=== PATIENT | male | born 1975 | race Caucasian/White ===

== ENCOUNTER 2020-10-27 09:26 | Emergency (ER) | payer MEDICARE, MEDICAID, SELFPAY ==
[2020-10-27 09:35] VITALS: BP 158/78; PULSE 80; RESP 17; TEMP 36.8; O2SAT 93; BMI 50.4
--- NOTE | 2020-10-27 10:02 | ED_ITS ---
HPI - URI/Sore Throat <Josefa Zhou PA-C - Last Filed: 10/27/20 11:18> General Chief Complaint: Upper Respiratory Symptoms Stated Complaint: cough/nose congestion 1 month Time Seen by Provider: 10/27/20 10:00 Source: patient Mode of arrival: Ambulatory Limitations: no limitations History of Present Illness HPI Narrative: This is a well-appearing obese 45-year-old gentleman current alexander day smoker who presents complaining of cough that seems worse at night and in the morning and ongoing sinus congestion for the past 30 days. He notes he has been tested twice for COVID at 2 different locations the last being last week 5 days ago. He has tried multiple different cough medicines without relief from his symptoms. He denies shortness of breath, chest pain, fevers, chills, nausea , vomiting, diarrhea, abdominal pain, swelling in his feet or ankles and otherwise has been in his normal state of health. MD Complaint: cough, rhinorrhea and nasal congestion Onset (ago): month(s) (1) Duration: constant and other (worse laying flat and in the morning) Relieving factors: nothing Exacerbating factors: nothing Description of mucous: clear Able to tolerate fluids by mouth: Yes Associated symptoms: cough (produces small amunt of clear mucus) Treatments prior to arrival: cold medicine Related Data Previous Rx's Medication Instructions Recorded benzonatate 100 mg PO BID PRN #30 cap 10/27/20 fluticasone propionate 1 spray INTRANASAL BID #15.8 ml 10/27/20 Review of Systems <Josefa Zhou PA-C - Last Filed: 10/27/20 11:18> Review of Systems Narrative: GENERAL: Denies chills, fatigue, malaise, fever, sweats. HEENT: Positive for postnasal drip, sinus congestion, Denies sinus pain, ear pain, sore throat, difficulty swallowing, dizziness. RESPIRATORY: Denies dyspnea, positive for mild cough, negative for wheezing, hemoptysis, sputum. CARDIOVASCULAR: Denies chest pain, palpitations, orthopnea, edema, GASTROINTESTINAL: Denies nausea, vomiting, abdominal pain, diarrhea, constipation, melena. : Denies dysuria, frequency, incontinence, hematuria, urinary retention. MUSCULOSKELETAL: denies weakness, joint pain, or bony pain SKIN: Denies rash, skin lesions, or other NEUROLOGIC: Denies weakness, headache, numbness, change in speech, confusion, seizures, incoordination. PSYCHIATRIC: No concerning psychosocial issues. 12 point review of systems is negative except for those stated above Patient History <Josefa Zhou PA-C - Last Filed: 10/27/20 11:18> Social History Smoking Status: Current every day smoker Smoking Status: Current every day smoker Substance Use Type: does not use Exam <Josefa Zhou PA-C - Last Filed: 10/27/20 11:18> Narrative Exam Narrative: GENERAL: 45 year old obese patient appears stated age. Well- nourished, well-developed patient, in no apparent distress. HEAD: Atraumatic. Normocephalic. EYES: Pupils equal round and reactive. Extraocular motions intact. No scleral icterus. No injection or drainage. ENT: Nose without bleeding, purulent drainage. Throat with mild erythema of the tonsillar pillar, no tonsillar hypertrophy or exudate. Airway patent. No sinus tenderness noted. There is slight retraction of the left tympanic membrane, right tympanic membrane is pearly arora with cone of light visible. Bilateral ear canals are normal in appearance, there is no tenderness with palpation of the Ear. NECK: Trachea midline. Non tender CARDIOVASCULAR: Regular rate and rhythm without murmurs, gallops, or rubs. RESPIRATORY: Slight wheezing in the upper bur[place] consistent with smoker's lung, otherwise Clear to auscultation. Breath sounds equal bilaterally. No wheezes, rales, or rhonchi. GASTROINTESTINAL: Abdomen soft, protruberant, non-tender, nondistended. EXTREMITIES: No edema or joint tenderness. BACK: Nontender without deformity or crepitance. No flank tenderness. NEURO: AOx3. SKIN: No rash or erythema of visible areas Initial Vital Signs Initial Vital Signs: Vital Signs Temperature 98.3 F 10/27/20 09:35 Pulse Rate 80 10/27/20 09:35 Respiratory Rate 17 10/27/20 09:35 Blood Pressure 158/78 H 10/27/20 09:35 Pulse Oximetry 93 10/27/20 09:35 <Gwendolyn Samuel DO - Last Filed: 10/29/20 09:23> Initial Vital Signs Initial Vital Signs: Vital Signs Temperature 98.3 F 10/27/20 09:35 Pulse Rate 80 10/27/20 09:35 Respiratory Rate 17 10/27/20 09:35 Blood Pressure 158/78 H 10/27/20 09:35 Pulse Oximetry 93 10/27/20 09:35 Scores <Josefa Zhou PA-C - Last Filed: 10/27/20 11:18> GCS Rj coma scale eye opening: Spontaneous [place] coma scale verbal response: Orientated [place] coma scale motor response: Obey commands [place] coma scale total score: 15 Course <Josefa Zhou PA-C - Last Filed: 10/27/20 11:18> Vital Signs Vital signs: Vital Signs - 8 hr 10/27/20 09:35 Temperature 98.3 F Pulse Rate 80 Respiratory Rate 17 Blood Pressure 158/78 H Pulse Oximetry 93 <Gwendolyn Samuel DO - Last Filed: 10/29/20 09:23> Vital Signs Vital signs: Vital Signs - 8 hr 10/27/20 09:35 Temperature 98.3 F Pulse Rate 80 Respiratory Rate 17 Blood Pressure 158/78 H Pulse Oximetry 93 MDM - URI/Sore Throat <Josefa Zhou PA-C - Last Filed: 10/27/20 11:18> Differential Diagnosis Differential diagnosis: Likely viral infection and other (post nasal drip, seasonal allergies, smokers cough) Medical Records Attestation: I reviewed the patient's medical records. [facility] Narrative Medical decision making narrative: This is a well-appearing 45-year-old obese gentleman who presents complaining of 30 days of mild cough and sinus congestion. No systemic symptoms, unremarkable vitals, patient has had 2-COVID tests in the last few weeks including 1 in the last 5 days. Symptoms are worse at night if he is laying flat and in the morning when he wakes up. No symptoms or exam findings suggestive of CHF, asthma, GERD, there is slight wheezing in the upper burrell but patient is an everyday smoker and he denies any shortness of breath wheezing. X-rays are not obtained. There is slight erythema of the tonsillar pillar and slight retraction the left tympanic membrane. Patient is encouraged to try fluticasone, Tessalon, daily antihistamine follow-up with primary care provider and if he does not get improvement of his symptoms consider seeing ENT. Patient is in understanding and agreement. Emergency ret urn precautions provided. Discharge Plan Departure Patient Disposition: Home Clinical Impression: Post-nasal drip, Sinus congestion, Cough Activity Restrictions/Additional Instructions: Thank you for letting us be part of a care in the emergency department today. I'm sorry you have an have any symptoms now for almost a month, I think it is likely that you are possibly dealing with an allergy which is causing your symptoms it is also possible that you are fighting a viral illness that is just taking a little while for your body to completely get better. As we discussed I recommend that you try using Tessalon for your cough, I am also advising trying Flonase or fluticasone for your sinus congestion. In addition to that I think you should consider taking a daily antihistamine such as Claritin or Zyrtec to see if this improves her symptoms as at this point I think it is more likely you are dealing with allergies than anything else. Recommend that you do not take the nasal spray for more than about 5 days in a row as this can cause some rebound sinus swelling. It is okay to use it again but give yourself a break from it. As we discussed please follow-up with primary care work on getting reestablished as you have planned, and if you do feel like your symptoms are continuing and not relieved by these different medications you should probably talk to her primary care provider again about it and consider seeing [place] [facility] [place] specialist. There is no evidence of an emergent or life threatening illness at this time, but follow up with your doctor in 1-2 days is recommended nonetheless to continue to rule out serious underlying causes of your symptoms. Please call the office for an appointment. Please return to the Emergency Department for any worsening or persistent symptoms. Please take medications as directed. I have also referred you to [facility] which may help you in establishing a new primary care provider if you give them a call. Prescriptions: New fluticasone propionate 50 mcg/actuation spray,suspension 1 spray intranasal BID Qty: 15.8 RF: 0 benzonatate 100 mg capsule 100 mg PO BID PRN (Reason: cough) Qty: 30 RF: 0 Referrals: [facility] [Outside] Juliette Rios ARNP [Primary Care Provider] - <Gwendolyn Samuel DO - Last Filed: 10/29/20 09:23> Cosign ED Attending Cosignature Attestation: I was immediately available in the department for consultation. Documentation has been reviewed.
[2020-10-27 11:52] VITALS: BP 163/81; PULSE 72; RESP 22; O2SAT 92
== END 2020-10-27 11:58 | disposition home or self-care (01) ==
PROVIDERS: Emergency Provider Student in an Organized Health Care Education/Training Program; Family Provider Nurse Practitioner Gerontology; PCP Nurse Practitioner Gerontology
DX: R09.82 Postnasal drip (principal); R09.81 Nasal congestion; R05 Cough; E66.9 Obesity, unspecified; Z68.43 Body mass index [BMI] 50.0-59.9, adult
CPT/HCPCS: 99281

== ENCOUNTER → 2020-11-12 10:38 | Outpatient (CLI) | payer MEDICARE, MEDICAID, SELFPAY ==
--- NOTE | 2020-11-12 10:40 | DI.RAD.S_ITS ---
PROCEDURE: XR CHEST 2V INDICATIONS: cough TECHNIQUE: 2 views of the chest were acquired. COMPARISON: None. FINDINGS: Surgical changes and devices: Cardiac pacemaking device and single lead appear normal. Prior sternotomy. Lungs and pleura: Lungs are mildly abnormal with an interstitial prominence, perhaps reflecting prior smoking history. No pleural effusions or pneumothorax. Mediastinum: Mediastinal contours are normal. Heart size is normal. Bones and chest wall: No suspicious bony abnormalities. Soft tissues appear unremarkable. IMPRESSION: Interstitial prominence, within the mid and lower lung parenchyma, but a definite pneumonia is not found. Cardiac pacemaking device and single chamber lead appear normal. Prior sternotomy. Dictated by: Corbin Gomez M.D. on 11/12/2020 at 11:08 Approved by: Corbin Gomez M.D. on 11/12/2020 at 11:21
== END ==
PROVIDERS: Family Provider Nurse Practitioner Gerontology; PCP Family Medicine; Referring Provider Family Medicine; Visit Provider Family Medicine
DX: R05 Cough (principal); F17.200 Nicotine dependence, unspecified, uncomplicated; Z95.0 Presence of cardiac pacemaker
CPT/HCPCS: 71046

== ENCOUNTER → 2020-12-09 09:46 | Outpatient (CLI) | payer MEDICARE, MEDICAID, SELFPAY ==
[2020-12-09 10:48] LABS: Add Manual Diff / Slide Review NO; Basophils Absolute Auto 100 /uL (0-100); Eosinophils Absolute Auto 300 /uL (0-450); Eosinophils Percent Auto 4.6 % (2-4); Hematocrit 46.8 % (41-53); Hemoglobin 15.8 g/dL (13.5-17.5); Lymphocytes Absolute Auto 1500 /uL (1100-4500); Mean Corpuscular HGB Conc 33.7 % (30-36); Mean Corpuscular Hemoglobin 29.7 PG (26-34); Mean Corpuscular Volume 87.9 fL (80-100); Monocytes Absolute Auto 500 /uL (0-900); Neutrophils Absolute Auto 3500 /uL (1500-7000); Neutrophils Percent Auto 60.4 % (50-75); Platelet Count 168 X10^3/uL (150-400); Red Blood Cell Count 5.33 X10^6/uL (4.5-5.9); Red Cell Distribution Width 13.4 % (11.6-14.8); White Blood Cell Count 5.9 X10^3/uL (4.5-11.0)
[2020-12-09 11:10] LABS: Alanine Aminotransferase 27 IU/L (<50); Albumin 3.9 g/dL (3.5-5.0); Albumin Globulin Ratio 1.1 (1.0-2.8); Alkaline Phosphatase 139 U/L (38-126); Aspartate Aminotransferase 29 IU/L (17-59); BUN Creatinine Ratio 16.4 (6-22); Bilirubin Total 1.2 mg/dL (0.2-1.3); Blood Urea Nitrogen 12 mg/dL (9-20); Calcium 8.6 mg/dL (8.4-10.2); Carbon Dioxide 29 mmol/L (22-32); Chloride 104 mmol/L (98-107); Cholesterol 143 mg/dL (140-199); Estimated Glomerular Filt Rate > 60.0 mL/min (>60); Globulin 3.4 g/dL (1.7-4.1); Glucose 96 mg/dL (70-100); HDL Cholesterol 44 mg/dL (40-60); HEMOLYSIS < 15 (0-50); LDL Cholesterol Calculated 74 mg/dL (<100); Potassium 3.4 mmol/L (3.4-5.1); Sodium 138 mmol/L (137-145); Total Protein 7.3 g/dL (6.3-8.2); Triglycerides 124 mg/dL (35-150)
[2020-12-09 11:44] LABS: TSH w/ Reflex to FT4 3.07 uIU/mL (0.47-4.68)
== END ==
PROVIDERS: Family Provider Nurse Practitioner Gerontology; PCP Family Medicine; Referring Provider Family Medicine; Visit Provider Family Medicine
DX: Z13.220 Encounter for screening for lipoid disorders (principal); I10 Essential (primary) hypertension; Z13.29 Encounter for screening for other suspected endocrine disorder; Z13.228 Encounter for screening for other metabolic disorders; Z76.89 Persons encountering health services in other specified circumstances; Z83.3 Family history of diabetes mellitus
CPT/HCPCS: 36415; 80053; 80061; 83036; 84443; 85025

== ENCOUNTER 2021-12-15 13:41 | Emergency (ER) | payer MEDICARE, MEDICAID, SELFPAY ==
[2021-12-15 14:01] VITALS: BP 199/99; PULSE 84; RESP 16; TEMP 36.1; O2SAT 96; BMI 56.7
--- NOTE | 2021-12-15 18:07 | ED.DENTAL ---
HPI - Dental/Oral <Rogelio Baird PA-C - Last Filed: 12/15/21 18:39> General Chief complaint: Dental/Oral Stated complaint: TOOTH PAIN ABSCESS IN THE JAW Time Seen by Provider: 12/15/21 17:53 Source: patient Mode of arrival: Ambulatory History of Present Illness HPI Narrative: 46-year-old male present to the ED complaining of right lower jaw pain swelling that started yesterday. His history of previous dental infections and is not currently seen a dentist because of no dental insurance. No recent trauma and no other complaint reported. Related Data Home Medications Medication Instructions Recorded Confirmed aspirin 325 mg tablet 325 mg PO DAILY 11/12/20 11/12/20 Previous Rx's Medication Instructions Recorded benzonatate 100 mg capsule 100 mg PO BID PRN #30 cap 10/27/20 fluticasone propionate 50 1 spray INTRANASAL BID #15.8 ml 10/27/20 mcg/actuation nasal spray,suspension lisinopril 10 mg tablet 10 mg PO DAILY #90 tab 10/14/21 amoxicillin 875 mg-potassium 1 tab PO BID #14 tab 12/15/21 clavulanate 125 mg tablet (Augmentin) Allergies Allergy/AdvReac Type Severity Reaction Status Date / Time bubba Allergy Severe Tongue Verified 12/15/21 14:01 Swelling Review of Systems <Rogelio Baird PA-C - Last Filed: 12/15/21 18:39> Review of Systems ROS Unobtainable: All systems reviewed & are unremarkable except as noted in HPI and below Constitutional Constitutional: Denies chills, Denies fatigue, Denies fever(s), Denies frequent falls, Denies lethargy and Denies weakness Eyes Eyes: Denies change in vision, Denies eye discharge, Denies irritation and Denies loss of vision ENT Ears, Nose, Mouth, and Throat: Denies change in voice, Reports dental pain, Denies dizziness, Denies neck pain, Denies sore throat and Denies throat swelling Cardiovascular Cardiovascular: Denies chest pain, Denies irregular heart rhythm, Denies lightheadedness, Denies palpitations, Denies dyspnea, Denies dyspnea on exertion and Denies orthopnea Respiratory Respiratory: Denies cough, Denies dyspnea, Denies dyspnea on exertion and Denies wheezing Gastrointestinal Gastrointestinal: Denies abdominal pain, Denies change in bowel habits, Denies diarrhea, Denies nausea and Denies vomiting Genitourinary Genitourinary: Denies hematuria, Denies flank pain, Denies urinary incontinence and Denies urinary urgency Musculoskeletal Musculoskeletal: Denies back pain, Denies muscle weakness, Denies neck pain, Denies numbness and Denies tingling Integumentary/Breasts Skin/Breast: Denies pruritus, Denies erythema, Denies rash and Denies wounds Neurologic Neurologic: Denies behavioral changes, Denies confusion, Denies dizziness, Denies frequent falls, Denies loss of vision, Denies numbness, Denies tingling and Denies weakness Psychiatric Psychiatric: Denies anxiety, Denies behavioral changes, Denies confusion, Denies depression, Denies homicidal ideation and Denies suicidal ideation Endocrine Endocrine: Denies fatigue, Denies flushing and Denies palpitations Hematologic/Lymphatic Hematologic/Lymphatic: Denies easy bruising Allergic/Immunologic Allergic/Immunologic: Denies urticaria, Denies throat swelling and Denies wheezing Patient History <Rogelio Baird PA-C - Last Filed: 12/15/21 18:39> Medical History DVT (deep venous thrombosis) (~2004) Pacemaker (~2004) Pulmonary embolism (~2004) Surgical History H/O gastric bypass (~2018) History of cholecystectomy (~2009) History of open heart surgery (~2009) Status post gastric banding (~2005) Family History Father Diabetes mellitus Hypertension Hyperlipidemia Mother Diabetes mellitus Hypertension Brother Diabetes mellitus Grandmother Cancer Hypertension Social History Smoking Status: Current every day smoker Tobacco: How many years used: 5 quit status: considering quitting alcohol intake: current (3-4 drinks per month ) substance use type: does not use Smoking Status: Current every day smoker alcohol intake frequency: holidays/special occasions only Substance Use Type: does not use Exam <Rogelio Baird PA-C - Last Filed: 12/15/21 18:39> Initial Vital Signs Initial Vital Signs: Vital Signs Temperature 96.9 F L 12/15/21 14:01 Pulse Rate 84 12/15/21 14:01 Respiratory Rate 16 12/15/21 14:01 Blood Pressure 199/99 H 12/15/21 14:01 Pulse Oximetry 96 12/15/21 14:01 HENMT Head: normal to inspection, normocephalic and atraumatic Ears: external ears normal Nose: external nose normal Face and sinus: normal facial exam Teeth and gingiva: abnormal tooth or associated gingiva, caries and poor dentition Neck Neck: lymphadenopathy and submandibular swelling <Gwendolyn Samuel DO - Last Filed: 12/23/21 06:45> Initial Vital Signs Initial Vital Signs: Vital Signs Temperature 96.9 F L 12/15/21 14:01 Pulse Rate 84 12/15/21 14:01 Respiratory Rate 16 12/15/21 14:01 Blood Pressure 199/99 H 12/15/21 14:01 Pulse Oximetry 96 12/15/21 14:01 Procedures <Rogelio Baird PA-C - Last Filed: 12/15/21 18:39> Nerve Block Nerve Block 1: Time of procedure: 18:30 Time out performed: No Local Anesthetic: lidocaine 1% Amount of anesthesia used (mL): 3 Side: left Intraoral Nerve Block: inferior alveolar Procedure Successful: Yes Patient Tolerated Procedure: Well and No complications Complications: none Course <NADEEN Mai Last Filed: 12/15/21 18:39> Orders Ordered: Discontinued Medications Amoxicillin/Clavulanate Potassium (Amoxicillin/Clav 875/125 Mg) 1 tab PO NOW ONE Stop: 12/15/21 18:05 Last Admin: 12/15/21 18:34 Dose: 1 tab Documented by: ASH Lidocaine HCl (Lidocaine 1% 20 Ml) 20 ml INJ INTRA-OP ONE Stop: 12/15/21 18:05 Last Admin: 12/15/21 18:35 Dose: Not Given Documented by: ASH Vital Signs Vital signs: Vital Signs - 8 hr 12/15/21 14:01 Temperature 96.9 F L Pulse Rate 84 Respiratory Rate 16 Blood Pressure 199/99 H Pulse Oximetry 96 <DO Salnea Broussard Last Filed: 12/23/21 06:45> Orders Ordered: Discontinued Medications Amoxicillin/Clavulanate Potassium (Amoxicillin/Clav 875/125 Mg) 1 tab PO NOW ONE Stop: 12/15/21 18:05 Last Admin: 12/15/21 18:34 Dose: 1 tab Documented by: ASH Lidocaine HCl (Lidocaine 1% 20 Ml) 20 ml INJ INTRA-OP ONE Stop: 12/15/21 18:05 Last Admin: 12/15/21 18:35 Dose: Not Given Documented by: ASH Vital Signs Vital signs: Vital Signs - 8 hr 12/15/21 14:01 Temperature 96.9 F L Pulse Rate 84 Respiratory Rate 16 Blood Pressure 199/99 H Pulse Oximetry 96 MDM - Dental/Oral <Rogelio Baird PA-C - Last Filed: 12/15/21 18:39> Differential Diagnosis Differential diagnosis: Likely dental caries and dental abscess MDM Narrative Medical decision making narrative: Patient was evaluated for right lower jaw dental pain. Patient has evidence of dental caries with likely underlying abscess is visible to start patient on oral antibiotics recommend follow-up with a dentist dental block was performed without any concerns patient tolerated well anesthesia was achieved. Patient was discharged home Discharge Plan Departure Patient Disposition: Home Clinical Impression: Dental caries, Gingival abscess Instructions: Tooth Abscess, DI for Dental Pain Activity Restrictions/Additional Instructions: You were seen today for your dental pain. It is likely that you have an underlying infection and I sent an antibiotic over to the pharmacy that you had requested. He had a dental block done today for pain that should last few hours I would recommend that you follow-up with a dentist as you will need continued care. Prescriptions: New amoxicillin-pot clavulanate [Augmentin] 875-125 mg tablet 1 tab PO BID Qty: 14 0RF No Action lisinopril 10 mg tablet 10 mg PO DAILY Qty: 90 0RF Rx Instructions: APPOINTMENT DUE FOR FURTHER REFILLS. THANK YOU! 10/14/21 aspirin 325 mg tablet 325 mg PO DAILY 0RF fluticasone propionate 50 mcg/actuation spray,suspension 1 spray intranasal BID Qty: 15.8 0RF Rx Instructions: administer into each nostril benzonatate 100 mg capsule 100 mg PO BID PRN (Reason: cough) Qty: 30 0RF Referrals: Bradley Fernández DO [Primary Care Provider] - <Gwendolyn Samuel DO - Last Filed: 12/23/21 06:45> Cosign ED Attending Cosignature Attestation: I was immediately available in the department for consultation. Documentation has been reviewed.
[2021-12-15] MEDS: AMOXICILLIN/CLAV 875/125 MG 1 TAB PO (18:34)
[2021-12-15 18:55] VITALS: BP 183/107; PULSE 80; O2SAT 99
== END 2021-12-15 18:55 | disposition home or self-care (01) ==
PROVIDERS: Emergency Provider Physician Assistant; Family Provider Nurse Practitioner Gerontology; PCP Family Medicine
DX: K02.9 Dental caries, unspecified (principal); K05.319 Chronic periodontitis, localized, unspecified severity; F17.200 Nicotine dependence, unspecified, uncomplicated; R68.84 Jaw pain
CPT/HCPCS: 64450; 99283

== ENCOUNTER → 2022-02-08 10:37 | Outpatient (CLI) | payer MEDICARE, MEDICAID, SELFPAY ==
--- NOTE | 2022-02-08 10:45 | DI.RAD.S_ITS ---
PROCEDURE: XR KNEE LT 3V INDICATIONS: Progressive L knee pain TECHNIQUE: 3 views of the knee were acquired. COMPARISON: None. FINDINGS: Bones: No fractures or dislocations. Moderate to advanced medial compartment degeneration with sclerosis of the opposing articular surfaces. Tricompartment osteophytosis.. Soft tissues: Small joint effusion. No suspicious soft tissue calcifications. IMPRESSION: Knee degeneration as detailed above. Dictated by: Chaparro Mcginnis M.D. on 02/08/2022 at 11:13 Approved by: Chaparro Mcginnis M.D. on 02/08/2022 at 11:14
[2022-02-08 11:47] LABS: Add Manual Diff / Slide Review NO; Basophils Absolute Auto 100 /uL (0-100); Basophils Percent Auto 1.1 % (0-2); Eosinophils Absolute Auto 200 /uL (0-450); Eosinophils Percent Auto 2.9 % (2-4); Hematocrit 45.7 % (41-53); Hemoglobin 15.3 g/dL (13.5-17.5); Lymphocytes Absolute Auto 2200 /uL (1100-4500); Lymphocytes Percent Auto 36.2 % (25-40); Mean Corpuscular HGB Conc 33.5 % (30-36); Mean Corpuscular Hemoglobin 29.5 PG (26-34); Mean Corpuscular Volume 87.9 fL (80-100); Monocytes Absolute Auto 600 /uL (0-900); Neutrophils Absolute Auto 3100 /uL (1500-7000); Neutrophils Percent Auto 50.8 % (50-75); Platelet Count 171 X10^3/uL (150-400); White Blood Cell Count 6.1 X10^3/uL (4.5-11.0)
[2022-02-08 11:57] LABS: Alanine Aminotransferase 19 IU/L (<50); Albumin 3.9 g/dL (3.5-5.0); Albumin Globulin Ratio 1.1 (1.0-2.8); Alkaline Phosphatase 125 U/L (38-126); Aspartate Aminotransferase 28 IU/L (17-59); Bilirubin Total 1.1 mg/dL (0.2-1.3); Blood Urea Nitrogen 12 mg/dL (9-20); Calcium 8.2 mg/dL (8.4-10.2); Carbon Dioxide 25 mmol/L (22-32); Chloride 106 mmol/L (98-107); Cholesterol 142 mg/dL (140-199); Estimated Glomerular Filt Rate > 60.0 mL/min (>60); Globulin 3.7 g/dL (1.7-4.1); Glucose 103 mg/dL (70-100); HDL Cholesterol 60 mg/dL (40-60); HEMOLYSIS < 15 (0-50); LDL Cholesterol Calculated 63 mg/dL (<100); Potassium 4.2 mmol/L (3.4-5.1); Sodium 139 mmol/L (137-145); Total Protein 7.6 g/dL (6.3-8.2); Triglycerides 96 mg/dL (35-150)
== END ==
PROVIDERS: Family Provider Nurse Practitioner Gerontology; PCP Family Medicine; Referring Provider Family Medicine; Visit Provider Family Medicine
DX: I10 Essential (primary) hypertension (principal); I48.91 Unspecified atrial fibrillation
CPT/HCPCS: 36415; 73562; 80053; 80061; 85025

== ENCOUNTER 2023-12-22 22:31 | Emergency (ER) | payer MEDICARE, MEDICAID, SELFPAY ==
[2023-12-22] VITALS (17 sets, daily range): BP systolic 134–163; BP diastolic 86–108; PULSE 101–129; RESP 0–33; TEMP 36–36.9; O2SAT 78–92; BMI 77.7
--- NOTE | 2023-12-22 22:41 | DI.RAD.S_ITS ---
PROCEDURE: XR CHEST 1V INDICATIONS: Shortness of breath TECHNIQUE: One view of the chest was acquired. COMPARISON: [facility], , XR CHEST 2V, 11/12/2020, 10:44. FINDINGS: Surgical changes and devices: Single lead left AICD device and median sternotomy wires. Lungs and pleura: Low lung volumes with perihilar and left basilar opacities. No pleural effusions or pneumothorax. Mediastinum: Mediastinal contours appear normal. Heart size is normal. Bones and chest wall: No suspicious bony lesions. Overlying soft tissues appear unremarkable. IMPRESSION: Low lung volumes. Perihilar and left lower lung opacities are concerning for pneumonia. Approved by: Lorraine Hagen M.D. on 12/23/2023 at 1:54
--- NOTE | 2023-12-22 22:46 | DI.RAD.S_ITS ---
PROCEDURE: XR ANKLE RT MIN 3V INDICATIONS: fall, right ankle pain TECHNIQUE: 3 views of the ankle were acquired. COMPARISON: None. FINDINGS: Bones: Cortical irregularity at the anterior dorsal aspect of the talus seen on lateral view. Small retrocalcaneal enthesophyte.. Ankle mortise is normally aligned. No suspicious bony lesions. Soft tissues: No tibiotalar joint effusion. Achilles tendon appears normal. IMPRESSION: Cortical irregularity at the anterior dorsal aspect of the talus, possible avulsion fracture versus degenerative changes. Correlate with point tenderness. No other acute osseous abnormality visualized. No significant joint effusion. Approved by: Lorraine Hagen M.D. on 12/23/2023 at 1:52
--- NOTE | 2023-12-22 22:50 | ED_ITS ---
HPI - Fall General Chief Complaint: Shortness of Breath/Dyspnea Stated Complaint: fall Time Seen by Provider: 12/22/23 22:49 Source: patient and EMS Mode of arrival: EMS History of Present Illness HPI Narrative: 48-year-old gentleman with a BMI of 77, history of atrial fibrillation with pacemaker/defibrillator in place, intracerebral hemorrhage April of 2022, history of gastric bypass surgery currently on no medications was reportedly outside slipped and fell and was unable to get back up. He was on the ground for about 1-1/2 hours. He is some right ankle swelling. Oxygen saturations were in the low 80s and patient reports that he has been short of breath for several weeks. He is brought in for further evaluation Related Data Home Medications Medication Instructions Recorded Confirmed No Known Home Medications 12/22/23 12/22/23 Allergies Allergy/AdvReac Type Severity Reaction Status Date / Time bubba Allergy Severe Tongue Verified 12/22/23 22:37 Swelling Review of Systems Review of Systems Narrative: Pertinent positive and negative findings as per HPI Patient History Medical History (Updated 12/23/23 @ 04:36 by Edith Thompson MD) Intracranial hemorrhage Sebaceous cyst Left knee sprain Left knee sprain Pulmonary embolism (~2004) Pacemaker (~2004) DVT (deep venous thrombosis) (~2004) Surgical History H/O gastric bypass (~2018) History of cholecystectomy (~2009) History of open heart surgery (~2009) Status post gastric banding (~2005) Family History Father Diabetes mellitus Hypertension Hyperlipidemia Mother Diabetes mellitus Hypertension Brother Diabetes mellitus Grandmother Cancer Hypertension Social History Smoking Status: Current every day smoker Tobacco: How many years used: 5 quit status: considering quitting alcohol intake: current (3-4 drinks per month ) substance use type: does not use Smoking Status: Current every day smoker alcohol intake frequency: 3 or more drinks per day Substance Use Type: does not use Exam Initial Vital Signs Initial Vital Signs: Vital Signs Temperature 96.8 F L 12/22/23 22:52 Pulse Rate 112 H 12/22/23 22:52 Respiratory Rate 30 H 12/22/23 22:52 Blood Pressure 159/108 H 12/22/23 22:52 Pulse Oximetry 86 L 12/22/23 22:52 Oxygen Delivery Method Nasal Cannula 12/22/23 22:52 Oxygen Flow Rate 4 12/22/23 22:52 General: Morbidly obese gentleman with increased work of breathing able to speak in full sentences no wheezing appreciated HEENT: Moist mucous membranes, normal sclera with reactive pupils, Neck: No JVD, Respiratory: Lungs are clear to auscultation, no wheezing no rales no rhonchi. Full and symmetrical air movement Cardiac: tachycardic and irregular Abdomen: Soft, obese. He has erythema in intertriginous folds under his pannus. States that this is ?an allergy to himself? and is best treated with deodorant. Topical antibiotics and antifungals tend to make things worse as do any type of material tucked into the folds. Skin: Pale, dry Neurologic: Grossly neurologically intact with no obvious asymmetries or abnormalities Extremities: Significant lower extremity edema with tense pressure bilateral lower extremities. Chronic venous stasis changes. On the right he has some edema over the lateral malleolus with tenderness to palpation and minor contusion. Psych: Cooperative, appropriate insight and affect Procedures Central Line Placement Right IJ: Time of procedure: 02:00 Patient Placed on Monitor/Pulse Ox: Yes MD Prep: mask, gown and gloves Central Line Prep: Chlorhexidine scrub Local Anesthetic: lidocaine 1% Amount of anesthesia used (mL): 3 Ultrasound Used for Placement: Yes Central Line Lumen Inserted: triple Post Procedure: sutured in place, good blood return, all ports aspirated, flushed, capped and line stabilization device Post Procedure X-Ray: tip of catheter in good position and no pneumothorax seen Patient Tolerated Procedure: Well Complications: none Course Orders Ordered: ED Orders 12/22/23 22:41 XR chest 1V Stat EKG-12 Lead Stat Measure peak expiratory flow ONCE RT Consult Eval and Treat NOW 12/22/23 22:46 XR ankle RT min 3V Stat 12/22/23 23:07 Blood Culture Stat CK [Creatine Kinase] Stat Complete Blood Count AUTO DIFF Stat Comprehensive Metabolic Panel Stat D Dimer Stat Lactate (Lactic Acid) Stat NT-proBNP (BNP-Adult 18+) Stat Procalcitonin Stat Prothrombin Time INR Stat Troponin I Stat 12/22/23 23:25 Respiratory Panel (Film Array) Stat 12/22/23 23:50 ABG [Arterial Blood Gas] Stat 12/22/23 23:57 High flow/High humidity nasal NOW 12/23/23 00:16 PTT Partial Thromboplastin Aamir Stat 12/23/23 02:03 XR chest 1V Stat 12/23/23 03:30 Trop I [Troponin I] Stat 12/23/23 06:17 PTT Partial Thromboplastin Aamir Stat Hydromorphone HCl (Hydromorphone 0.5 Mg Inj) 0.5 mg IV Q15MIN PRN PRN Reason: Pain, Last Admin: 12/23/23 04:10 Dose: 0.5 mg Documented By: PENNY Heparin Sodium/Dextrose (Heparin Drip) 25,000 unit in 500 mls @ 96.18 mls/hr IV CONT MORIAH; Protocol Last Admin: 12/23/23 00:17 Dose: 18 units/kg/hr, 96.18 mls/hr Documented By: PENNY Co-signed By: BENITA DILTIAZEM (Diltiazem 125 Mg/125 Ml-D5w) 125 mg in 125 mls @ 5 mls/hr IV TITRATE MORIAH; Protocol Last Admin: 12/23/23 04:01 Dose: 5 mg/hr, 5 mls/hr Documented By: PENNY Discontinued Medications Albuterol/Ipratropium (Albuterol/Ipratropium 3 Ml Ampul) 3 ml INH NOW ONE Stop: 12/22/23 23:05 Last Admin: 12/22/23 23:07 Dose: 3 ml Documented By: FREDY Diltiazem HCl (Diltiazem 5 Mg/Ml Sdv) 20 mg IV NOW ONE Stop: 12/23/23 03:27 Last Admin: 12/23/23 04:02 Dose: Not Given Documented By: PENNY Heparin Sodium (Porcine) (Heparin 5,000 Unit/Ml Vial) 10,000 unit IV NOW ONE Stop: 12/22/23 23:50 Last Admin: 12/23/23 00:08 Dose: 10,000 unit Documented By: PENNY Hydromorphone HCl (Hydromorphone 0.5 Mg Inj) 0.5 mg IV NOW ONE Stop: 12/23/23 02:01 Last Admin: 12/23/23 02:15 Dose: 0.5 mg Documented By: PENNY Furosemide 80 mg/ Sodium (Chloride) 58 mls @ 116 mls/hr IV NOW ONE Stop: 12/22/23 23:50 Last Infusion: 12/23/23 00:58 Dose: Infused Documented By: Admin: 12/23/23 00:16 Dose: 116 mls/hr Documented By: PENNY Ceftriaxone Sodium 2,000 mg/ (Sodium Chloride) 100 mls @ 200 mls/hr IV NOW ONE Stop: 12/23/23 03:28 Last Infusion: 12/23/23 04:32 Dose: Infused Documented By: Admin: 12/23/23 03:58 Dose: 200 mls/hr Documented By: PENNY Azithromycin 500 mg/ Dextrose 250 mls @ 250 mls/hr IV NOW ONE Stop: 12/23/23 03:28 Last Admin: 12/23/23 04:35 Dose: 250 mls/hr Documented By: PENNY Labetalol HCl (Labetalol 20 Mg/4 Ml Syringe) 20 mg IV NOW ONE Stop: 12/23/23 03:19 Last Admin: 12/23/23 03:32 Dose: 20 mg Documented By: BENITA Vital Signs Vital signs: Vital Signs - 8 hr 12/22/23 22:52 12/22/23 22:52 12/22/23 22:52 Temperature 96.8 F L Pulse Rate 112 H Respiratory Rate 30 H Blood Pressure 159/108 H 152/90 H Pulse Oximetry 86 L Oxygen Delivery Method Nasal Cannula Oxygen Flow Rate 4 12/22/23 22:57 12/22/23 22:58 12/22/23 23:00 Temperature 98.4 F Pulse Rate Respiratory Rate 32 H Blood Pressure 163/96 H Pulse Oximetry 91 Oxygen Delivery Method Nasal Cannula Oxygen Flow Rate 4 12/22/23 23:00 12/22/23 23:05 12/22/23 23:07 Temperature Pulse Rate 106 H 110 H 105 H Respiratory Rate 32 H 0 L 33 H Blood Pressure Pulse Oximetry 86 L 79 L Oxygen Delivery Method Nasal Cannula Nasal Cannula Oxygen Flow Rate 4 32 12/22/23 23:10 12/22/23 23:15 12/22/23 23:15 Temperature Pulse Rate 129 H 111 H Respiratory Rate 21 20 Blood Pressure Pulse Oximetry 79 L 87 L 78 L Oxygen Delivery Method Nasal Cannula Oxygen Flow Rate 4 12/22/23 23:20 12/22/23 23:20 12/22/23 23:25 Temperature Pulse Rate 107 H 102 H Respiratory Rate 33 H 24 30 H Blood Pressure Pulse Oximetry 91 88 L 89 L Oxygen Delivery Method Oximask Oxygen Flow Rate 6 12/22/23 23:30 12/22/23 23:33 12/22/23 23:33 Temperature Pulse Rate 104 H 101 H Respiratory Rate 28 H 23 Blood Pressure 134/86 Pulse Oximetry 90 L 92 Oxygen Delivery Method Oxygen Flow Rate 12/22/23 23:35 12/22/23 23:40 12/22/23 23:45 Temperature Pulse Rate 107 H 110 H 111 H Respiratory Rate 33 H 21 22 Blood Pressure Pulse Oximetry 92 92 91 Oxygen Delivery Method Oxygen Flow Rate 12/22/23 23:50 12/22/23 23:55 12/23/23 00:00 Temperature Pulse Rate 108 H 111 H 112 H Respiratory Rate 20 18 30 H Blood Pressure Pulse Oximetry 90 L 91 92 Oxygen Delivery Method Oxygen Flow Rate 12/23/23 00:05 12/23/23 00:09 12/23/23 00:10 Temperature Pulse Rate 104 H 101 H 99 H Respiratory Rate 12 33 H 17 Blood Pressure Pulse Oximetry 92 91 91 Oxygen Delivery Method Oxygen Flow Rate 12/23/23 00:15 12/23/23 00:20 12/23/23 00:25 Temperature Pulse Rate 109 H 101 H 103 H Respiratory Rate 31 H 12 27 H Blood Pressure Pulse Oximetry 91 91 91 Oxygen Delivery Method Oxygen Flow Rate 12/23/23 00:28 12/23/23 00:28 12/23/23 00:30 Temperature Pulse Rate 105 H Respiratory Rate 21 Blood Pressure 143/84 H 138/84 Pulse Oximetry 88 L Oxygen Delivery Method Oxygen Flow Rate 12/23/23 00:30 12/23/23 00:31 12/23/23 00:35 Temperature Pulse Rate 98 H 98 H 103 H Respiratory Rate 20 20 17 Blood Pressure Pulse Oximetry 91 92 93 Oxygen Delivery Method Oxygen Flow Rate 12/23/23 00:43 12/23/23 00:45 12/23/23 00:48 Temperature Pulse Rate 107 H 110 H 105 H Respiratory Rate 22 Blood Pressure Pulse Oximetry 91 93 92 Oxygen Delivery Method Heated High Flow Heated High Flow Oxygen Flow Rate 12/23/23 00:48 12/23/23 00:50 12/23/23 00:55 Temperature Pulse Rate 108 H 102 H Respiratory Rate 21 18 Blood Pressure 123/98 H Pulse Oximetry 93 92 Oxygen Delivery Method Heated High Flow Heated High Flow Oxygen Flow Rate 12/23/23 01:00 12/23/23 01:11 12/23/23 01:11 Temperature Pulse Rate 105 H 100 H Respiratory Rate 21 24 Blood Pressure 143/79 H Pulse Oximetry 92 92 Oxygen Delivery Method Heated High Flow Oxygen Flow Rate 12/23/23 01:15 12/23/23 01:30 12/23/23 01:31 Temperature Pulse Rate 102 H 105 H 102 H Respiratory Rate 15 16 13 Blood Pressure Pulse Oximetry 89 L 92 89 L Oxygen Delivery Method Oxygen Flow Rate 12/23/23 01:31 12/23/23 01:45 12/23/23 01:46 Temperature Pulse Rate 101 H 105 H Respiratory Rate 25 H 22 Blood Pressure 152/105 H Pulse Oximetry 97 95 Oxygen Delivery Method Heated High Flow Oxygen Flow Rate 12/23/23 01:49 12/23/23 01:49 12/23/23 02:00 Temperature Pulse Rate 97 H 109 H Respiratory Rate 25 H 26 H Blood Pressure 177/116 H Pulse Oximetry 95 96 Oxygen Delivery Method Heated High Flow Heated High Flow Oxygen Flow Rate 12/23/23 02:15 12/23/23 02:30 12/23/23 02:30 Temperature Pulse Rate 108 H 104 H Respiratory Rate 27 H 22 Blood Pressure 159/96 H Pulse Oximetry 95 93 Oxygen Delivery Method Heated High Flow Heated High Flow Oxygen Flow Rate 12/23/23 02:45 12/23/23 03:00 12/23/23 03:01 Temperature Pulse Rate 113 H 119 H 126 H Respiratory Rate 14 20 22 Blood Pressure Pulse Oximetry 91 93 92 Oxygen Delivery Method Heated High Flow Heated High Flow Heated High Flow Oxygen Flow Rate 12/23/23 03:01 12/23/23 03:13 12/23/23 03:15 Temperature Pulse Rate 108 H 119 H Respiratory Rate 18 20 Blood Pressure 166/122 H Pulse Oximetry 92 93 Oxygen Delivery Method Heated High Flow Oxygen Flow Rate 12/23/23 03:30 12/23/23 03:31 12/23/23 03:31 Temperature Pulse Rate 83 82 Respiratory Rate 17 18 Blood Pressure 154/83 H Pulse Oximetry 93 92 Oxygen Delivery Method Heated High Flow Heated High Flow Oxygen Flow Rate 12/23/23 03:32 12/23/23 03:45 12/23/23 04:00 Temperature Pulse Rate 84 84 83 Respiratory Rate 21 17 Blood Pressure 154/83 H Pulse Oximetry 92 93 Oxygen Delivery Method Heated High Flow Heated High Flow Oxygen Flow Rate 12/23/23 04:00 12/23/23 04:34 12/23/23 04:36 Temperature Pulse Rate 87 87 Respiratory Rate 20 Blood Pressure 130/84 140/75 140/75 Pulse Oximetry 92 Oxygen Delivery Method Oxygen Flow Rate MDM - Fall Lab Data 12/22/23 23:07 12/22/23 23:07 Labs: Lab Results 12/22/23 12/22/23 12/22/23 Range/Units 23:07 23:25 23:50 WBC 7.2 (4.5-11.0) X10^3/uL RBC 5.57 (4.5-5.9) X10^6/uL Hgb 13.8 (13.5-17.5) g/dL Hct 45.4 (41-53) % MCV 81.4 (80-100) fL MCH 24.8 L (26-34) PG MCHC 30.5 (30-36) % RDW 18.2 H (11.6-14.8) % Plt Count 191 (150-400) X10^3/uL Neut % (Auto) 78.8 H (50-75) % Lymph % (Auto) 12.0 L (25-40) % [place] % (Auto) 7.2 (3-14) % Eos % (Auto) 1.3 L (2-4) % Baso % (Auto) 0.7 (0-2) % Neut # (Auto) 5600 (1695-0879) /uL Lymph # (Auto) 900 L (0418-4345) /uL [place] # (Auto) 500 (0-900) /uL Eos # (Auto) 100 (0-450) /uL Baso # (Auto) 0 (0-100) /uL PT 13.7 H (9.4-12.5) SECONDS INR 1.2 (0.9-1.3) APTT 31 (25.1-36.5) SECONDS D-Dimer 2108 H (<500) ng/ml ABG Sample Site Left radial ABG pH 7.29 L* (7.35-7.45) ABG pCO2 69.5 H* (35-45) mmHg ABG pO2 65 L (80-100) mmHg ABG HCO3 33 H (23-27) mmol/L ABG Total CO2 35 H (23-27) mmol/L ABG O2 Saturation 89 L (95-100) % ABG Base Excess 7.0 H (-2-3) mmol/L FiO2 70 Sodium 139 (137-145) mmol/L Potassium 3.9 (3.4-5.1) mmol/L Chloride 98 (98-107) mmol/L Carbon Dioxide 36 H (22-32) mmol/L BUN 16 (9-20) mg/dL Creatinine 0.96 (0.66-1.25) mg/dL Estimated GFR > 60 (>60) mL/min BUN/Creatinine Ratio 16.7 (6-22) Glucose 87 (70-100) mg/dL Lactate 1.8 (0.7-2.1) mmol/L Calcium 8.1 L (8.4-10.2) mg/dL Total Bilirubin 1.2 (0.2-1.3) mg/dL AST 29 (17-59) IU/L ALT 15 (<50) IU/L Alkaline Phosphatase 118 (38-126) U/L Total Creatine Kinase 59 (55-170) U/L Troponin I 0.037 H (0.01-0.034) ng/mL NT-Pro-B Natriuret Pep 3970 H (<125) pg/mL Total Protein 7.1 (6.3-8.2) g/dL Albumin 3.2 L (3.5-5.0) g/dL Globulin 3.9 (1.7-4.1) g/dL Albumin/Globulin Ratio 0.8 L (1.0-2.8) Procalcitonin 0.05 (<0.5) ng/mL Chlamy pneumoniae PCR Not detected (Not Detect) Adenovirus (PCR) Not detected (Not Detect) B.parapertussis DNA PCR Not detected (Not Detecte) Coronavirus OC43 (PCR) Not detected (Not Detect) Coronavirus HKU1 (PCR) Not detected (Not Detect) Coronavirus 229E (PCR) Not detected (Not Detect) SARS-CoV-2 (PCR) Not detected (Not Detecte) Coronavirus NL63 (PCR) Not detected (Not Detect) Human Metapneumovir PCR Not detected (Not Detect) Influenza Type A (PCR) Not detected (Not Detect) Influenza Type B (PCR) Not detected (Not Detect) M. pneumoniae (PCR) Not detected (Not Detect) Parainfluenza 1 (PCR) Not detected (Not Detect) Parainfluenza 2 (PCR) Not detected (Not Detect) Parainfluenza 3 (PCR) Not detected (Not Detect) Parainfluenza 4 (PCR) Not detected (Not Detect) RSV (PCR) Not detected (Not Detect) Entero/Rhino (PCR) Not detected (Not Detect) 12/23/23 Range/Units 03:30 WBC (4.5-11.0) X10^3/uL RBC (4.5-5.9) X10^6/uL Hgb (13.5-17.5) g/dL Hct (41-53) % MCV (80-100) fL MCH (26-34) PG MCHC (30-36) % RDW (11.6-14.8) % Plt Count (150-400) X10^3/uL Neut % (Auto) (50-75) % Lymph % (Auto) (25-40) % [place] % (Auto) (3-14) % Eos % (Auto) (2-4) % Baso % (Auto) (0-2) % Neut # (Auto) (5108-4221) /uL Lymph # (Auto) (9601-7358) /uL [place] # (Auto) (0-900) /uL Eos # (Auto) (0-450) /uL Baso # (Auto) (0-100) /uL PT (9.4-12.5) SECONDS INR (0.9-1.3) APTT (25.1-36.5) SECONDS D-Dimer (<500) ng/ml ABG Sample Site ABG pH (7.35-7.45) ABG pCO2 (35-45) mmHg ABG pO2 (80-100) mmHg ABG HCO3 (23-27) mmol/L ABG Total CO2 (23-27) mmol/L ABG O2 Saturation (95-100) % ABG Base Excess (-2-3) mmol/L FiO2 Sodium (137-145) mmol/L Potassium (3.4-5.1) mmol/L Chloride (98-107) mmol/L Carbon Dioxide (22-32) mmol/L BUN (9-20) mg/dL Creatinine (0.66-1.25) mg/dL Estimated GFR (>60) mL/min BUN/Creatinine Ratio (6-22) Glucose (70-100) mg/dL Lactate (0.7-2.1) mmol/L Calcium (8.4-10.2) mg/dL Total Bilirubin (0.2-1.3) mg/dL AST (17-59) IU/L ALT (<50) IU/L Alkaline Phosphatase (38-126) U/L Total Creatine Kinase (55-170) U/L Troponin I 0.044 H (0.01-0.034) ng/mL NT-Pro-B Natriuret Pep (<125) pg/mL Total Protein (6.3-8.2) g/dL Albumin (3.5-5.0) g/dL Globulin (1.7-4.1) g/dL Albumin/Globulin Ratio (1.0-2.8) Procalcitonin (<0.5) ng/mL Chlamy pneumoniae PCR (Not Detect) Adenovirus (PCR) (Not Detect) B.parapertussis DNA PCR (Not Detecte) Coronavirus OC43 (PCR) (Not Detect) Coronavirus HKU1 (PCR) (Not Detect) Coronavirus 229E (PCR) (Not Detect) SARS-CoV-2 (PCR) (Not Detecte) Coronavirus NL63 (PCR) (Not Detect) Human Metapneumovir PCR (Not Detect) Influenza Type A (PCR) (Not Detect) Influenza Type B (PCR) (Not Detect) M. pneumoniae (PCR) (Not Detect) Parainfluenza 1 (PCR) (Not Detect) Parainfluenza 2 (PCR) (Not Detect) Parainfluenza 3 (PCR) (Not Detect) Parainfluenza 4 (PCR) (Not Detect) RSV (PCR) (Not Detect) Entero/Rhino (PCR) (Not Detect) MDM Narrative Medical decision making narrative: CC: Presumed syncopal episode, unable to get off the ground, significant dyspnea and hypoxia Complicating co-morbidities: Morbid obesity with weight at 267 kilos and a BMI of 77, prior cardiac arrest intraoperatively, pacer defibrillator in place, post gastric bypass surgery Data collected from: patient, mother Medical records reviewed: [facility] note from May of 2022 is reviewed Differential considered: Acute coronary syndrome, atrial fibrillation with rapid ventricular response, congestive heart failure, pneumothorax, pulmonary embolism, sepsis Exam documented above, pertinent findings include: Morbidly obese gentleman able to speak in full sentences quite pleasant and alert with tachypnea and hypoxia. He has erythema intertriginous folds under his pannus. Body habitus makes physical exam were challenging but I do not appreciate significant pulmonary abnormalities. He has significant bilateral lower extremity edema and his right ankle is swollen over the lateral malleolus secondary to his fall Lab Test results independently reviewed as above. Pertinent findings: No significant leukocytosis although he does have 78% neutrophils. No anemia D-dimer dramatically elevated at 2108. ABG is notable for a pH of 7.29 CO2 of 69.5, O2 at 65 this is on 70% oxygen, bicarbonate 33 Chemistries notable for good renal function. Normal electrolytes, Troponin is slightly elevated at 0.037 BNP is elevated at 3 970 Procalcitonin is low Viral panel is unremarkable Independently reviewed EKG: Atrial fibrillation with a rate at 99. Pulmonary disease pattern is appreciated which increases concern for acute pulmonary embolism. He does have an incomplete right bundle branch block, he does not have right shifted axis, [address] segments in V1 and AVR, he does not have T-wave inversions. There is no evidence for acute STEMI Imaging studies independently reviewed: Right ankle x-ray shows no abnormalities over the lateral aspect of the ankle which is the source of his tenderness and swelling do not suspect Acute fracture Low lung volumes with perihilar and lower lung opacities. Concerning for pneumonia Repeat chest x-ray post line placement shows appropriate line placement no significant change to lung burrell Consultations: Discussion with tele ICU physician Dr. Gambino for help with ER ICU management. He agrees that this is not an appropriate patient for [facility] ER. Bariatric facilities are insufficient for appropriate care for him and should he need intubation additional care would be significantly limited. Treatments: Multiple interventions described below per identified problem Discussion: 48-year-old gentleman with presumed syncopal episode, problems include: 1. syncope. uncertain etiology. Does not describe AICD firing. 2. Respiratory distress with significant dyspnea, hypoxia and tachycardia. Chest x-ray shows perihilar fullness but overall poor inspiratory effort secondary to body habitus. Possibilities include infection, congestive heart failure, acute coronary syndrome, pulmonary embolism. Was initially requiring 10 L OxyMask and is much more comfortable with high-flow oxygen. Currently on high-flow oxygen at 50 liters/minute 70% oxygen with saturations in the low 90s. Initial ABG showed hypoxia with hypercarbia and moderate respiratory acidosis 440am increased to 60L/m and 80%fio2 3. Presumed pulmonary embolism. Clinical presentation is entirely consistent with pulmonary embolism. D-dimer is significantly elevated, EKG has chronic respiratory pattern unclear if this is baseline or additional evidence for pulmonary embolism. Unfortunately at 267 kilos he does not fit on our CT scanner. Heparin is started empirically 4. Congestive heart failure with volume overload. He is given Lasix,80mg. Bloom catheter is placed for close I/O 5. Initial elevated troponin without evidence for acute STEMI. This may be his baseline, related to congestive heart failure or a bump secondary to the presumed pulmonary embolism. He is anticoagulated for the embolism. Second troponin is currently pending. trop is trending 6. Atrial fibrillation. This is chronic typically rate controlled over the course of his ER stay his rate has continued to increase. Blood pressures have also continued to increase. I suspect that some of this is secondary to his pain from his ankle sprain however I am also concerned with the increased strain with work of breathing. He was found to nicely to an initial dose of labetalol IV and will be maintained on a diltiazem drip to keep blood pressures lower than 160/100 7. Possible infection, will begin antibiotics for community-acquired pneumonia, ceftriaxone and azithromycin. He does not report significant cough or fevers. He has not showing significant leukocytosis. Lactic acid is not elevated and I do not suspect sepsis at this time. Respiratory panel is unremarkable 8. Right ankle sprain. No evidence of fracture on x-rays. This has been increasingly painful. It is becoming more swollen. We had tried an Robert wrap but that became too tight and was removed. Dilaudid has been offered for pain control. Ice packs placed 9. Vascular access: This has been a significant issue as well as blood draws. Right internal jugular central line is placed without complication 10. code status: Patient and his mother are both very clear that he wants to be and remain full code. He does have AICD in place Overall disposition: At this time patient is not an appropriate candidate for admission to [facility] ICU. He will likely need pulmonary and cardiology consultation and if he does proceed to needing to be intubated that management will be significantly complicated as would be arranging for tracheostomy placement. We will begin to look for available beds 435am [facility] has beds. Care is reviewed with fuel cell engineer, Dr. Burkett and patient is accepted. Critical Care Time Critical Care Time Critical Care Time: Yes Total Critical Care Time: 47 Attestation: Critical care time is separate from other billable procedures. There is a high probability of a significant, sudden or life-threatening deterioration that requires my full and direct attention, intervention and personal management. This critical care time includes consultation with family and other consulting doctors, review of records, and interpretation of data from labs, EKGs and imaging as well as managements of respiratory failure in the setting of multiple complex medical issues Discharge Plan Departure Patient Disposition: [facility] Clinical Impression: Acute respiratory distress, Morbid obesity, Non-ST elevation RI (NSTEMI) Pulmonary embolism Qualifiers: Pulmonary embolism type: unspecified Chronicity: acute Acute cor pulmonale presence: unspecified Qualified Code(s): I26.99 - Other pulmonary embolism without acute cor pulmonale Episode of syncope Qualifiers: Syncope type: unspecified Qualified Code(s): R55 - Syncope and collapse Acute CHF Qualifiers: Heart failure type: unspecified Qualified Code(s): I50.9 - Heart failure, unspecified Right ankle sprain Qualifiers: Encounter type: initial encounter Involved ligament of ankle: unspecified ligament Qualified Code(s): S93.401A - Sprain of unspecified ligament of right ankle, initial encounter Prescriptions: No Action No Known Home Medications Referrals: Bradley Fernández DO [Primary Care Provider] -
[2023-12-22] MEDS: ALBUTEROL/IPRATROPIUM 3 ML AMPUL INH (23:07)
[2023-12-22 23:25] LABS: Add Manual Diff / Slide Review NO; Basophils Absolute Auto 0 /uL (0-100); Basophils Percent Auto 0.7 % (0-2); Eosinophils Absolute Auto 100 /uL (0-450); Eosinophils Percent Auto 1.3 % (2-4); Hematocrit 45.4 % (41-53); Hemoglobin 13.8 g/dL (13.5-17.5); INR 1.2 (0.9-1.3); Lymphocytes Absolute Auto 900 /uL (1100-4500); Mean Corpuscular HGB Conc 30.5 % (30-36); Mean Corpuscular Hemoglobin 24.8 PG (26-34); Mean Corpuscular Volume 81.4 fL (80-100); Monocytes Absolute Auto 500 /uL (0-900); Monocytes Percent Auto 7.2 % (3-14); Neutrophils Absolute Auto 5600 /uL (1500-7000); Neutrophils Percent Auto 78.8 % (50-75); Platelet Count 191 X10^3/uL (150-400); Prothrombin Time 13.7 SECONDS (9.4-12.5); Red Blood Cell Count 5.57 X10^6/uL (4.5-5.9); Red Cell Distribution Width 18.2 % (11.6-14.8); White Blood Cell Count 7.2 X10^3/uL (4.5-11.0)
[2023-12-22 23:29] LABS: Lactate (Lactic Acid) 1.8 mmol/L (0.7-2.1)
[2023-12-22 23:32] LABS: Alanine Aminotransferase 15 IU/L (<50); Albumin 3.2 g/dL (3.5-5.0); Albumin Globulin Ratio 0.8 (1.0-2.8); Alkaline Phosphatase 118 U/L (38-126); Aspartate Aminotransferase 29 IU/L (17-59); BUN Creatinine Ratio 16.7 (6-22); Bilirubin Total 1.2 mg/dL (0.2-1.3); Blood Urea Nitrogen 16 mg/dL (9-20); Calcium 8.1 mg/dL (8.4-10.2); Carbon Dioxide 36 mmol/L (22-32); Chloride 98 mmol/L (98-107); Creatine Kinase 59 U/L (55-170); D Dimer 2108 ng/ml (<500); Estimated Glomerular Filt Rate > 60 mL/min (>60); Globulin 3.9 g/dL (1.7-4.1); Glucose 87 mg/dL (70-100); HEMOLYSIS 17 (0-50); Potassium 3.9 mmol/L (3.4-5.1); Sodium 139 mmol/L (137-145); Total Protein 7.1 g/dL (6.3-8.2)
[2023-12-22 23:44] LABS: NT-proBNP (BNP-Adult 18+) 3970 pg/mL (<125); Troponin I 0.037 ng/mL (0.01-0.034)
[2023-12-22 23:49] LABS: Procalcitonin 0.05 ng/mL (<0.5)
[2023-12-23] VITALS (60 sets, daily range): BP systolic 123–177; BP diastolic 65–122; PULSE 82–126; RESP 12–33; O2SAT 88–97
[2023-12-23] MEDS: HEPARIN 5,000 UNIT/ML VIAL 10000 UNIT IV (00:08)
[2023-12-23] MEDS: FUROSEMIDE 80 MG in SODIUM CHLORIDE 0.9% 50 ML 116 MG IV (00:16)
[2023-12-23] MEDS: HEPARIN DRIP 25,000 UNIT/500 ML IV.SOLN 96.18 UNIT IV ×2 (00:17→05:57)
[2023-12-23 00:21] LABS: HCO3 ABG 33 mmol/L (23-27); Oxygen Saturation ABG 89 % (95-100); PCO2 ABG 69.5 mmHg (35-45); PO2 ABG 65 mmHg (80-100); TCO2 ABG 35 mmol/L (23-27)
[2023-12-23 00:22] LABS: Allen Test for ABG Passed? Yes, Passed; Blood Gas Collection Site Left Radial; Fractionated Inspired Oxygen 70
[2023-12-23 00:23] LABS: Adenovirus Not Detected (Not Detect); B. parapertussis Not Detected (Not Detecte); Bordetella pertussis Not Detected (Not Detect); Chlamydophila pneumoniae Not Detected (Not Detect); Coronavirus 229E Not Detected (Not Detect); Coronavirus HKU1 Not Detected (Not Detect); Coronavirus NL 63 Not Detected (Not Detect); Coronavirus OC43 Not Detected (Not Detect); Human Metapneumovirus Not Detected (Not Detect); Human Rhinovirus/Enterovirus Not Detected (Not Detect); Influenza A Not Detected (Not Detect); Influenza B Not Detected (Not Detect); Mycoplasma pneumoniae Not Detected (Not Detect); Parainfluenza Virus 1 Not Detected (Not Detect); Parainfluenza Virus 2 Not Detected (Not Detect); Parainfluenza Virus 3 Not Detected (Not Detect); Parainfluenza Virus 4 Not Detected (Not Detect); Respiratory Syncytial Virus Not Detected (Not Detect); SARS- CoV-2 Not Detected (Not Detecte)
[2023-12-23 00:23] LABS: pH ABG 7.29 (7.35-7.45)
[2023-12-23 00:26] LABS: PTT Partial Thromboplastin Tim 31 SECONDS (25.1-36.5)
--- NOTE | 2023-12-23 02:03 | DI.RAD.S_ITS ---
PROCEDURE: XR CHEST 1V INDICATIONS: central line verification TECHNIQUE: One view of the chest was acquired. COMPARISON: [facility], CR, XR CHEST 1V, 12/22/2023, 23:02. FINDINGS: Surgical changes and devices: Interval placement of right central venous catheter with tip projecting over the right atrium. Single lead left chest wall AICD device and median sternotomy wires. Lungs and pleura: No significant interval change in bibasilar opacities and small left pleural effusion.. No pleural effusions or pneumothorax. Mediastinum: Mediastinal contours appear normal. Heart size is normal. Bones and chest wall: No suspicious bony lesions. Overlying soft tissues appear unremarkable. IMPRESSION: Interval placement of right central venous catheter with tip projecting over the right atrium. No other significant change since prior radiograph. Approved by: Lorraine Hagen M.D. on 12/23/2023 at 2:53
[2023-12-23] MEDS: HYDROMORPHONE 0.5 MG INJ IV ×3 (02:15→06:35)
[2023-12-23] MEDS: LABETALOL 20 MG/4 ML SYRINGE IV (03:32)
[2023-12-23] MEDS: cefTRIAXone 2,000 MG in SODIUM CHLORIDE 0.9% 100 ML 200 MG IV (03:58)
[2023-12-23 03:59] LABS: Troponin I 0.044 ng/mL (0.01-0.034)
[2023-12-23] MEDS: DILTIAZEM 125 MG/125 ML PIGGYBACK IV (04:01)
--- NOTE | 2023-12-23 04:34 | RT ---
RN administered pain meds to pt, and called RT due to O2 desaturation. Settings on HHFNC have been titrated in order to help pt maintain his saturation greater than or equal to 92%. Currently he has an SpO2 at 92% with uniform waveform on pleth. Current settings: 60L flow, FiO2 80%. Pt has a medium sized cannula, which is patent. Pt is alert and oriented. He is maintaining his airway and has spont. respirations WNLs. Will cont. to monitor closely.
[2023-12-23] MEDS: AZITHROMYCIN 500 MG in DEXTROSE 5% IN WATER 250 ML 250 MG IV (04:35)
--- NOTE | 2023-12-23 06:38 | PC.NURSE ---
Report given to Eva KRUEGER at [facility] [phone]. [phone]. Patient left with NWA report given to Lane KRUEGER. Heparin running at 96.18ml/hr 18units/kg/hr. Diltiazem running at 5mg/hr.
[2023-12-23 16:20] LABS: Acinetobacter calcoa-baumannii Not Detected (Not Detect); Bacteroides fragilis Not Detected (Not Detect); Candida albicans Not Detected (Not Detect); Candida auris Not Detected (Not Detect); Candida glabrata Not Detected (Not Detect); Candida krusei Not Detected (Not Detect); Candida parapsilosis Not Detected (Not Detect); Candida tropicalis Not Detected (Not Detect); Cryptococcus neoformans/gatti Not Detected (Not Detect); Enterobacter cloacae complex Not Detected (Not Detect); Enterobacterales Not Detected (Not Detect); Enterococcus faecalis Not Detected (Not Detect); Enterococcus faecium Not Detected (Not Detect); Haemophilus influenzae Not Detected (Not Detect); Klebsiella aerogenes Not Detected (Not Detect); Listeria monocytogenes Not Detected (Not Detect); Neisseria meningitidis Not Detected (Not Detect); Proteus species Not Detected (Not Detect); Pseudomonas aeruginosa Not Detected (Not Detect); Salmonella species Not Detected (Not Detect); Serratia marcescens Not Detected (Not Detect); Staphylococcus epidermidis Detected (Not Detect); Staphylococcus lugdunensis Not Detected (Not Detect); Staphylococcus species Detected (Not Detect); Stenotrophomonas maltophilia Not Detected (Not Detect); Streptococcus agalactiae (Gr B Not Detected (Not Detect); Streptococcus pneumonia Not Detected (Not Detect); Streptococcus pyogenes (Gr A) Not Detected (Not Detect); Streptococcus species Not Detected (Not Detect); mecA/C Resistance Not Detected (Not Detect)
== END 2023-12-23 06:35 | disposition short-term general hospital (02) ==
PROVIDERS: Emergency Provider Emergency Medicine; PCP Family Medicine
DX: R06.03 Acute respiratory distress (principal); I26.99 Other pulmonary embolism without acute cor pulmonale; R55 Syncope and collapse; I21.4 Non-ST elevation (NSTEMI) myocardial infarction; I50.9 Heart failure, unspecified; E66.01 Morbid (severe) obesity due to excess calories; W01.0XXA Fall on same level from slipping, tripping and stumbling without subsequent striking against object, initial encounter; Z20.822 Contact with and (suspected) exposure to COVID-19
CPT/HCPCS: 36415; 36569; 36600; 71045; 73610; 80053; 82550; 82805; 83605; 83880; 84145; 84484; 85025; 85379; 85610; 85730; 87040; 87077; 87154; 87633; 93005; 93010; 96365; 96366; 96367; 96368; 96375; 96376; 99285; 99291; J0696; J1170; J1644; J1940

== ENCOUNTER → 2024-04-13 10:39 | Outpatient (CLI) | payer MEDICARE, MEDICAID, SELFPAY ==
--- NOTE | 2024-04-13 10:42 | DI.RAD.S_ITS ---
PROCEDURE: XR KNEE RT 3V INDICATIONS: eval bilateral knee pain TECHNIQUE: 3 views of the knee were acquired. COMPARISON: None FINDINGS: Bones: No fractures or dislocations. No suspicious bony lesions. Moderate tricompartmental arthritic change most severe laterally. Periarticular osteophytes are present. No erosions. Soft tissues: No joint effusion. No suspicious soft tissue calcifications. IMPRESSION: Moderate tricompartmental arthritic change. Dictated by: Kaela Baldwin M.D. on 04/13/2024 at 14:09 Approved by: Kaela Baldwin M.D. on 04/13/2024 at 14:15
--- NOTE | 2024-04-13 10:42 | DI.RAD.S_ITS ---
PROCEDURE: XR KNEE LT 3V INDICATIONS: eval bilateral knee pain TECHNIQUE: 3 views of the knee were acquired. COMPARISON: [facility], CR, XR KNEE LT 3V, 02/08/2022, 10:37. FINDINGS: Bones: No fractures or dislocations. No suspicious bony lesions. There is moderate to severe tricompartmental arthritic changes most severe medially. Periarticular osteophytes and subchondral sclerosis are present. No distinct erosions. There has overall been mild progression compared to prior exam. Soft tissues: Minimal joint effusion. No suspicious soft tissue calcifications. IMPRESSION: Moderate to severe tricompartmental arthritic change with mild interval progression. Dictated by: Kaela Baldwin M.D. on 04/13/2024 at 14:08 Approved by: Kaela Baldwin M.D. on 04/13/2024 at 14:08
== END ==
LOC: RAD 10:41
PROVIDERS: PCP Family Medicine; Referring Provider Family Medicine; Visit Provider Family Medicine
DX: M25.561 Pain in right knee (principal); M25.562 Pain in left knee
CPT/HCPCS: 73562

== ENCOUNTER → 2025-04-09 09:00 | Outpatient (CLI) | payer MEDICARE, MEDICAID, SELFPAY ==
[2025-04-09 10:08] LABS: Add Manual Diff / Slide Review NO; Basophils Absolute Auto 100 /uL (0-100); Eosinophils Absolute Auto 200 /uL (0-450); Eosinophils Percent Auto 3.1 % (2-4); Hematocrit 48.4 % (41-53); Hemoglobin 16.2 g/dL (13.5-17.5); Lymphocytes Absolute Auto 1300 /uL (1100-4500); Lymphocytes Percent Auto 22.6 % (25-40); Mean Corpuscular HGB Conc 33.4 % (30-36); Mean Corpuscular Hemoglobin 29.9 PG (26-34); Mean Corpuscular Volume 89.5 fL (80-100); Monocytes Absolute Auto 500 /uL (0-900); Monocytes Percent Auto 8.4 % (3-14); Neutrophils Absolute Auto 3800 /uL (1500-7000); Neutrophils Percent Auto 64.9 % (50-75); Platelet Count 189 X10^3/uL (150-400); Red Blood Cell Count 5.41 X10^6/uL (4.5-5.9); Red Cell Distribution Width 14.2 % (11.6-14.8); White Blood Cell Count 5.9 X10^3/uL (4.5-11.0)
[2025-04-09 10:14] LABS: Hemoglobin A1C% w Est Avg Glu 4.6 % (4.0-6.0)
[2025-04-09 10:31] LABS: Alanine Aminotransferase 23 IU/L (<50); Albumin 3.8 g/dL (3.5-5.0); Albumin Globulin Ratio 1.3 (1.0-2.8); Alkaline Phosphatase 142 U/L (38-126); Aspartate Aminotransferase 30 IU/L (17-59); BUN Creatinine Ratio 13.5 (6-22); Bilirubin Total 1.4 mg/dL (0.2-1.3); Blood Urea Nitrogen 13 mg/dL (9-20); Calcium 8.7 mg/dL (8.4-10.2); Carbon Dioxide 23 mmol/L (22-32); Chloride 108 mmol/L (98-107); Cholesterol 134 mg/dL (140-199); Estimated Glomerular Filt Rate > 60 mL/min (>60); Globulin 2.9 g/dL (1.7-4.1); Glucose 92 mg/dL (70-99); HDL Cholesterol 48 mg/dL (40-60); HEMOLYSIS < 15 (0-50); LDL Cholesterol Calculated 70 mg/dL (<100); Potassium 3.9 mmol/L (3.4-5.1); Sodium 140 mmol/L (137-145); Total Protein 6.7 g/dL (6.3-8.2); Triglycerides 81 mg/dL (35-150)
[2025-04-09 11:01] LABS: Prostate Specific Antigen 0.172 ng/mL (0.10-4.00)
== END ==
PROVIDERS: PCP Family Medicine; Referring Provider Family Medicine; Visit Provider Family Medicine
DX: E11.9 Type 2 diabetes mellitus without complications (principal); I10 Essential (primary) hypertension; I48.91 Unspecified atrial fibrillation
CPT/HCPCS: 36415; 80053; 80061; 83036; 84153; 85025